=== PATIENT | male | born 1955 | race Caucasian/White ===

== ENCOUNTER 2022-02-22 14:26 | Outpatient (CLI) | payer MEDICARE, OTHER, SELFPAY ==
--- NOTE | ~2022-02-22 | CT_ITS ---
EXAMINATION: CT LE LT wo con DATE: 02/22/2022 14:02 INDICATION: Primary osteoarthritis of the left knee. Chronic left knee pain. TECHNIQUE: High resolution computed tomography (CT) of the left lower extremity from the hip through the ankle was performed without intravenous contrast. Additional sagittal and coronal reconstructions were performed. Automated exposure control and iterative reconstruction technique were employed. The dose-length product was 1936.69 mGy-cm. COMPARISON: Left knee radiographs dated 02/17/2022 FINDINGS: Bone alignment is normal. No fracture. Dense sclerotic bone islands with spiculated margins at the le ft femoral head and left superior pubic ramus. Curvilinear sclerosis underlying the posterior cortex at the proximal metaphyseal region of the tibia with no evident cortical erosion or other aggressive imaging features suggesting a benign etiology such as a hemangioma or scarring related to an old nono ssifying fibroma. Mild to moderate left hip osteoarthritis with mild subarticular cystlike changes at the superolateral left acetabulum and small marginal osteophytes along the acetabular rim. Tricompar tmental osteoarthritis at the left knee, severe in the medial compartment with some early remodeling of the articular cortex at the anterior half of the medial tibial plateau additional mild subarticula r cystlike changes along the anterior to central weightbearing medial femoral condyle. Moderate-sized marginal osteophytes at the patellofemoral compartment and small marginal osteophytes at the lateral compartment. Moderate osteoarthritis of the first metatarsophalangeal joint. Additional mild osteoar thritis at the left ankle and many of the remaining joints throughout the left foot. Small left knee joint effusion. There are some subcutaneous varicosities along both the medial and lateral aspect of the left thigh and calf. IMPRESSION: 1. Severe medial compartment predominant osteoarthritis at the left knee. Reviewed, dictated and finalized at location A. L MOLDER
[2022-02-22 15:04] LABS: Hematocrit 40.5 % (42.0-52.0); Hemoglobin 13.5 g/dL (14.0-18.0)
[2022-02-22 15:08] LABS: Albumin Level 4.4 g/dL (3.5-5.1); Estimated Glomerular Filt Rate 47; Glucose 98 mg/dL (65-110)
--- NOTE | 2022-02-22 15:18 | ECG_ITS ---
Measurements Intervals [place] Rate: 77 P: 3 DC: 168 QRS: -3 QRSD: 109 T: 12 QT: 385 QTc: 436 Interpretive Statements SINUS RHYTHM NORMAL ECG NO PREVIOUS ECG AVAILABLE FOR COMPARISON Electronically Signed On 02-22-2022 15:33:48 SHIPPING WEIGHER by Adonay Campos D.O.
== END 2022-02-22 14:27 | disposition home or self-care (01) ==
PROVIDERS: PCP Internal Medicine; Visit Provider Orthopaedic Surgery
DX: M17.12 Unilateral primary osteoarthritis, left knee (principal); D64.9 Anemia, unspecified; E66.9 Obesity, unspecified; E78.5 Hyperlipidemia, unspecified; I10 Essential (primary) hypertension
CPT/HCPCS: 36415; 73700; 82040; 82565; 82947; 85014; 85018; 93005

== ENCOUNTER 2022-03-31 11:54 | Outpatient (CLI) | payer MEDICARE, OTHER, SELFPAY ==
[2022-03-31 12:59] LABS: Basophils Percent Auto 0.8 % (0.2-1.2); Eosinophils Absolute Auto 0.1 K/mm3 (0-0.3); Eosinophils Percent Auto 1.5 % (0-4.4); Hematocrit 41.6 % (42.0-52.0); Hemoglobin 13.7 g/dL (14.0-18.0); Immature Granulocyte Absolute 0.01 K/mm3 (0.00-0.031); Immature Granulocyte Percent A 0.2 % (0-0.5); Lymphocytes Absolute Auto 1.09 K/mm3 (0.9-3.2); Lymphocytes Percent Auto 23.1 % (18.3-44.2); Mean Corpuscular HGB Conc 32.9 g/dl (32-36); Mean Corpuscular Hemoglobin 30.5 pg (26-34); Mean Corpuscular Volume 92.7 fl (80-100); Mean Platelet Volume 11.3 fl (7.4-10.4); Monocytes Absolute Auto 0.7 K/mm3 (0.1-0.6); Monocytes Percent Auto 14.8 % (2.6-8.5); Neutrophils Absolute Auto 2.8 K/mm3 (1.3-6.7); Neutrophils Percent Auto 59.6 % (45.5-73.1); Platelet Count Result 207 k/mm3 (150-375); Red Blood Count 4.49 M/mm3 (4.6-6.20); Red Cell Distribution Width 13.4 % (11.5-14.5); White Blood Count 4.7 K/mm3 (4.5-10.0)
[2022-03-31 13:09] LABS: Albumin Level 4.4 g/dL (3.5-5.1); Estimated Glomerular Filt Rate > 60; Glucose 99 mg/dL (65-110)
[2022-03-31 13:13] LABS: Urine Cotinine NEGATIVE
[2022-03-31 13:23] LABS: Hemoglobin A1C 5.3 % (<5.7)
== END 2022-03-31 11:55 | disposition home or self-care (01) ==
PROVIDERS: PCP Internal Medicine; Visit Provider Orthopaedic Surgery
DX: M17.12 Unilateral primary osteoarthritis, left knee (principal); Z01.818 Encounter for other preprocedural examination
CPT/HCPCS: 80307; 82040; 82565; 82947; 83036; 85025; 87081

== ENCOUNTER 2022-04-27 01:11 | Day surgery (SDC) | payer MEDICARE, OTHER, SELFPAY ==
[2022-03-31 12:04] VITALS: BMI 31.3
--- NOTE | 2022-03-31 12:25 | PC.NURSE ---
Report to the Outpatient Waiting Room, entrance under the green pavilion located off [facility], at time 1130 on date _04/27/22 . Planned Procedure Time: __1330 . Time changes happen often and if your time is changed the preop area will call you the afternoon before. - You and your visitor will be asked to self-screen and do not enter if you have any COVID symptoms. - Only one visitor is requested with a max of two and NO children visitors are allowed at this time. - The patient visitor may be requested to leave or wait in car when not with patient due to distancing restrictions. - A mask is optional within the hospital. Patients may have clear liquids (water, carbonated beverages, clear teas, apple juice) until 3 hours prior to surgery with a maximum of 20 ounces. - No food from midnight until time of surgery - Infants may have breast milk until 4 hours before surgery, infant formula 6 hours prior to surgery. - Children will be allowed to drink immediately following surgery. If applicable, please bring a bottle or sippy cup to assist with drinking. Juice, water, soda, and popsicles are readily available. For infants on formula, please bring formula the day of surgery. Pacifiers are allowed. TOTAL JOINT CLASS 04/07/22 AT 10 AM Take the following medications with a SIP of water the morning of surgery: ____NONE Medications to discontinue per physician MULTIVITAMIN HOLD 3 DAYS PRE OP-LAST DOSE WILL BE 04/23/22_.NO IBUPROFEN/ALEVE/ADVIL 7 DAYS PRE OP Please no make-up, nail divehi, hairspray, perfume, deodorant, or body powder the day of surgery. No jewelry (including any body piercings) or valuables the day of surgery, leave them at home. Please take a shower or bath the night before, or the morning of, surgery with an antibacterial soap. Wear comfortable, loose fitting clothing. Children are encouraged to wear pajamas. - Jewelry must be removed prior to entering the operating room. Rings and piercings that are not removed may be cut off. - The hospital will not accept responsibility for valuables. - Please leave all valuables, including medications, at home the day of surgery. If you are going home after surgery, a licensed hazardous materials driver must drive you home. - NO public transportation without another adult if you receive anesthesia. - We recommend that an adult stay with you for 24 hours following discharge. - We also recommend that you do not drive, make important decision, drink alcoholic beverages, or take any drugs that were not prescribed by your health care provider for at least 24 hours after your discharge time. For Pediatric surgeries, we recommend two adults accompany the child home. Follow any additional instructions given to you from your surgeon. If you or anyone in your household have experienced Covid symptoms in the past week, please notify your surgeon or the nurse liaison at the phone number below for possible testing. VERBAL AND WRITTEN instructions given to __PATIENT and asked if any additional questions and then verbalized understanding. Patient advised to call surgeon office or pre surgery nurse liaison [phone] if any additional questions.
[2022-03-31 12:42] VITALS: BP 130/80; PULSE 77; RESP 18; TEMP 36.8; O2SAT 98
--- NOTE | 2022-04-26 14:21 | WPDANESEPPF ---
Anes - Initial Pre Proc Eval Procedure: Operation Date: 04/27/22 08:30 Proposed Procedures p Left Custom Total Knee Arthroplasty - Jefferson Hollins MD Date/Time: 04/26/22 14:21 Surgeon: Jefferson Hollins MD Pre Op Diagnosis: primary oa left knee Patient Data Age: 66 Gender: M Height: 1.83 m Weight: 104.8 kg Last Vital Signs Temp 36.8 C 03/31/22 12:42 Pulse 77 03/31/22 12:42 Resp 18 03/31/22 12:42 BP 130/80 03/31/22 12:42 Pulse Ox 98 03/31/22 12:42 O2 Del Method Room Air 03/31/22 12:42 Allergies Allergy/AdvReac Type Severity Reaction Status Date / Time codeine Allergy Mild Nausea Verified 04/27/22 07:00 Home Medications Medication Instructions Recorded Confirmed Type lisinopril 20 mg tablet 20 mg PO DAILY #90 tabs 11/29/21 04/14/22 Rx acetaminophen 500 mg capsule 1,000 mg PO PRN PRN Pain 03/31/22 04/14/22 History fenofibrate 160 mg tablet 160 mg PO DAILY #120 tabs 04/23/22 Rx Patient hx anesthesia problems: none Family hx anesthesia problems: none Results Review: All pre-operative results and documents have been reviewed as part of the pre-operative evaluation. [facility]LY [facility] Past Medical History Medical History (Updated 04/26/22 @ 14:21 by Baron Briseno DO) COVID-19 Hyperlipidemia Hypertension Surgical History Surgical History History of colonoscopy Hx of transurethral resection of prostate Family History Family History Father Hypertension Sibling Patient's sister is in good health Patient's brother is in good health Family history of malignant neoplasm Patient's brother is Mother Family history of lung cancer, Onset Age: 70 Patient's mother is , Onset Age: 70 Social History Social History Smoking status: Unknown if ever smoked Second hand tobacco smoke exposure: No Additional smoking assessment comments: DENIES ANY FORM OF TOBACCO USE Alcohol intake: current Alcohol use details: very rarely Substance use: never Substance use type: does not use Lack of Transportation: No Lack of Food: Never True Current Housing: I Have Housing Concerned About Future Housing: No Difficulty Paying Gas/Electric Bills: No Difficulty Paying for Meds: No Currently Unemployed: No Education: Bachelor's Degree Difficulty w/ Childcare or Family Care: No Living arrangements: with family Spiritual care concerns: No Anes - Eval Final PreProcedure Day of Procedure 04/26/22 14:21 Patient weight: obese Heart: regular rate and rhythm Lungs: clear to auscultation Airway: Mallampati scale class II Neurological: alert and oriented Last oral intake: >/= 8 hours ASA classification: III Emergent: no Anesthetic plan: proceed Anesthesia type and monitoring: general LMA and standard monitoring Results Review: All pre-operative results and documents have been reviewed as part of the pre-operative evaluation. Informed Consent: The patient's anesthetic plan and its attendant risks and benefits were discussed with the patient/family/POA. Questions were solicited and answers provided to the satisfaction of the patient/family/POA.
[2022-04-27] VITALS (14 sets, daily range): BP systolic 125–144; BP diastolic 61–82; PULSE 68–88; RESP 12–18; TEMP 36.1–36.6; O2SAT 97–100
--- NOTE | ~2022-04-27 | XR_ITS ---
EXAMINATION: XR knee LT 2V DATE: 04/27/2022 11:31 INDICATION: Postoperative evaluation following left knee arthroplasty. TECHNIQUE: Anteroposterior and lateral views of the left knee were obtained. COMPARISON: 02/17/22 FINDINGS: Left total knee arthroplasty with patellar resurfacing appears well seated and in near anatomic align ment. No fractures identified. Expected postoperative subcutaneous, intramedullary and intra-articul ar gas. IMPRESSION: 1. Left total knee arthroplasty, negative for postoperative purposes. Reviewed, dictated and finalized at location A. HEN CLEANER
[2022-04-27] MEDS: ACETAMINOPHEN 500 MG TABLET 1000 MG PO (07:11)
[2022-04-27] MEDS: LACTATED RINGERS 1,000 ML 30 ML IV CONT ×2 (07:24→11:15)
[2022-04-27] MEDS: TRANEXAMIC ACID 1,000MG/ISO100 1,000 MG/100 ML BAG 200 MG IVPB (07:53)
--- NOTE | 2022-04-27 07:59 | WPDHPUPDATE1 ---
History and Physical Update Update Date/Time: 04/27/22 07:59 History and Physical has been reviewed, including an updated exam of the patient. There are NO changes in the patient's condition. Risks, benefits, and alternatives have been discussed and questions answered. Patient agrees to proceed with procedure.
--- NOTE | 2022-04-27 08:16 | WPDANESPNB ---
Anes - Peripheral Nerve Block Date/Time: 04/27/22 08:16 I have discussed with the patient/family/POA the placement of a peripheral nerve block for post-operative pain management, including associated risks, benefits, complications, and side effects. Alternative methods of post-operative analgesia were detailed. Questions were solicited and answers provided to the satisfaction of the patient/family/POA. Time-Out: A pre-procedural Time-Out was completed immediately before starting the procedure and confirmed: Patient Identification, Site, Procedure, Patient Position and the Availability of Requisite Equipment. Clinical Indications: Acute post-operative pain management requested by the operative surgeon. Nerve Block Insertion Note Anes-nerve block: adductor canal left Patient position: supine Skin prep: chlorhexidine Needle: 22 gauge, stimulating, insulated echogenic needle. Needle length: 80 mm Technique: ultrasound Injectate: bupivacaine 0.5% with epi 5 mcg/ml (30cc - no epi) Observations: tolerated well Complications: none Procedure start time:: 804 Procedure end time:: 807
[2022-04-27] MEDS: ceFAZolin 2 GM/D5W 50 ML 2 GM/50 ML BAG IVPB (09:10)
[2022-04-27] MEDS: GENTAMICIN BONE CEMENT REFOBACIN 1 EACH TOPICAL (09:12)
[2022-04-27] MEDS: TRANEXAMIC ACID 1,000 MG/10 ML AMPUL 1000 MG IV PUSH (10:47)
[2022-04-27] MEDS: fentaNYL CITRATE INJ (*CRX) 100 MCG/2 ML VIAL 25 MCG IV PUSH ×8 (11:27→12:21)
--- NOTE | 2022-04-27 11:32 | P.OP_ITS ---
Procedure Note - Detailed Date of Procedure 04/27/22 Pre-op Diagnosis primary oa left knee Post-op Diagnosis Same Procedure Performed Total knee arthroplasty, left. Surgeon Jefferson Hollins MD Nuclear Engineering Technician Susan Cochran PA-C Anesthesia General and Regional (Subsartorial block.) Findings Varus deformity. Good bone quality. Implants fit very well. Very slight medial release. Posterior stabilized Imprint implant. Description of Procedure Preoperative antibiotics were given. The limb was prepped and draped in the usual sterile fashion with a well-padded tourniquet high on the thigh. The limb was exsanguinated and the tourniquet inflated to 300 mmHg during exposure and cementation. A longitudinal incision was created just medial to the patella. A trivector approach to the knee was performed. Arthrotomy was taken down through the joint capsule. No significant releases were initially taken. The femur was exposed and the F1 jig was applied. The coring tool was used to remove the cartilage for the F2 jig to sit flush with the bone. The jig was pinned and the distal cut carefully taken. Caliper measurements confirmed appropriate bony resections according to the preoperative templated plan. The F4 cutting jig for the femur was applied, at the standard rotation. The AP and anterior chamfer cuts were taken. The F5 jig was applied and the posterior chamfer cuts were taken. Box cut was taken. PCL resected. The tibia was prepared using the T1 jig, after removing cartilage for the jig contact points. Proper alignment was checked with the alignment tyrell. The tibia was cut using the T1u guide. Gap balancing was performed. Gap measurements were taken and the knee was trialed. Excellent alignment and soft tissue balancing was confirmed. The patella was cut for resurfacing. Three lug holes were drille d. Meniscal remnants were removed. The trial components were assembled. Excellent range of motion and proper soft tissue balancing were confirmed throughout the full range of motion. Patellar tracking was excellent. The knee was copiously irrigated periodically throughout the procedure. The real implants were cemented into position. Excess cement was carefully removed. The wound was closed in layers with interrupted #1 Vicryl suture, 2-0 strata fix suture, 0 strata fix suture, 2-0 strata fix suture. Steri-Strips placed on the skin with the knee flexed. Sterile bulky dressing applied. The patient was brought to the recovery room in stable condition. There were no complications. Physician nutrition services assistant, Susan Cochran PA-C, required for surgery; including patient positioning, draping, tissue retraction, maintaining instrument position, wound closure, and dressing placement. Implants Conformis Imprint semi-custom total knee arthroplasty. Cemented. Posterior stabilized 8mm insert. 41 mm round patella. Estimated Blood Loss -200.0 Drains No Complications No immediate complications Condition Stable Disposition PACU [facility] Billing Surgery - Charge Forward: Surgery Billing
[2022-04-27] MEDS: oxyCODONE HCL (*CRX) 5 MG TAB IR PO (12:35)
[2022-04-27] MEDS: KETOROLAC 30 MG/ML VIAL (*BKC) IV PUSH (13:16)
--- NOTE | 2022-04-27 13:25 | PCPTNOTE ---
Attempted PT evaluation, pt is in recovery/too much pain to be seen by PT per RN. Will follow
--- NOTE | 2022-04-27 16:10 | SUR.PHASEII ---
1530 pt has been seen by pt/ot and is good to be discharged. pt is wanting to also be discharged and meets anesthesia protocol to be discharged
== END 2022-04-27 16:00 | disposition home or self-care (01) ==
PROVIDERS: PCP Internal Medicine; Visit Provider Orthopaedic Surgery
PROC: (CPT 27447; principal; 2022-04-27 08:30)
DX: M17.12 Unilateral primary osteoarthritis, left knee (principal); G89.18 Other acute postprocedural pain; I10 Essential (primary) hypertension; E78.5 Hyperlipidemia, unspecified; E66.9 Obesity, unspecified; Z68.30 Body mass index [BMI] 30.0-30.9, adult
CPT/HCPCS: 27447; 64447; 36415; 73560; 86850; 86900; 86901; 97110; 97161; 97165; 97535; A9270; C1713; C1776; J0131; J0171; J0690; J1100; J1170; J1885; J2250; J2270; J2405; J2704; J2795; J3010; J7120

== ENCOUNTER 2023-04-26 09:11 | Outpatient (CLI) | payer MEDICARE, OTHER, SELFPAY ==
--- NOTE | ~2023-04-26 | XR_ITS ---
Left Knee Technique: AP, lateral, and sunrise views were obtained. Clinical History: Arthroplasty follow-up Findings: No fracture or dislocation is seen. Total left knee arthroplasty in place, without evidence of hardware complication.. Soft tissues are unremarkable. No joint effusion is seen. Impression: No acute abnormality. Left knee arthroplasty in place. Reviewed, dictated and finalized at location . MS ADJUSTER Impression: No acute abnormality. Left knee arthroplasty in place.
== END 2023-04-26 09:12 | disposition home or self-care (01) ==
PROVIDERS: PCP Internal Medicine; Visit Provider Orthopaedic Surgery
DX: Z47.1 Aftercare following joint replacement surgery (principal); Z96.652 Presence of left artificial knee joint
CPT/HCPCS: 73562

== ENCOUNTER 2023-11-22 16:43 | Emergency (ER) | payer MEDICARE, OTHER, SELFPAY ==
--- NOTE | 2023-11-22 16:47 | ED.EAR ---
HPI - Ear Problem General Chief complaint: Ear Stated complaint: ears clogged Time Seen by Provider: 11/22/23 16:46 Source: patient Mode of arrival: ambulatory Limitations: no limitations History of Present Illness HPI Narrative: Mario is a 68-year-old male patient presenting to the clinic today with complaints of feeling as though his right ear clogged afrer going swimming. He reports he can not hear out of the right ear. Denies any pain or other concerns. Related Data Allergies Allergy/AdvReac Type Severity Reaction Status Date / Time codeine Allergy Mild Nausea Verified 11/22/23 17:22 Review of Systems Review of Systems: Pertinent positives per HPI. Patient denies any fever, chills, rash, headache, visual changes, dizziness, cough, runny nose, sore throat, shortness of breath, chest pain, palpitations, nausea, vomiting, diarrhea, constipation, abdominal pain, or any urinary issues. PMFSH Past Medical History Medical History COVID-19 Hyperlipidemia Hypertension Surgical History Surgical History History of colonoscopy Hx of transurethral resection of prostate Status post total left knee replacement (~04/27/22) Family History Family History Father Hypertension Sibling Patient's sister is in good health Patient's brother is in good health Family history of malignant neoplasm Patient's brother is Mother Family history of lung cancer, Onset Age: 70 Patient's mother is , Onset Age: 70 Social History Social History Smoking status: Never smoker Second hand tobacco smoke exposure: No Additional smoking assessment comments: DENIES ANY FORM OF TOBACCO USE Alcohol intake: current Alcohol use details: very rarely Substance use: never Substance use type: does not use Do You Feel Safe in your Home?: Yes Lack of Transportation: No Lack of Food: Never True Current Housing: I Have Housing Concerned About Future Housing: No Difficulty Paying Gas/Electric Bills: No Difficulty Paying for Meds: No Currently Unemployed: No Education: Bachelor's Degree Difficulty w/ Childcare or Family Care: No Living arrangements: with family Spiritual care concerns: No Comments At the time of my signature, I reviewed and agree with the nursing past medical, surgical, social, and family history. There is no relevant family history pertinent to the patient complaint. Exam Narrative: General: Well-developed, well nourished, in no apparent distress Head: Normocephalic, atraumatic Eyes: Pupils equally round and reactive to light bilaterally, EOM intact, sclera and conjunctive clear, no discharge, lids normal Ears: Right ear canal impacted with cerumen, ear lavaged an ear curette was used to remove cerumen, TMs intact and clear, ear canals clear, no drainage, grossly hearing normal. Nose: Nares patent, no discharge, no inflammation, no sinus tenderness. Mouth: Oropharynx without lesions or masses, good dentition, MMM. Neck: Supple, trachea midline, no enlargement of anterior or posterior cervical nodes, no thyroid masses or goiter palpable. Cardio: Regular rate and rhythm, s1 and s2 normal, no murmur appreciated. Resp: Clear to auscultation bilaterally anteriorly and posteriorly, no rhonchi, rales, wheezing or rubs Course Course Emergency Course: Portions of this record may have been created with voice recognition software. Level of Care: Express Care Visit Vital Signs Vital signs: Vital signs reviewed Procedures Ear Wax Removal Right Ear: Ear Wax Removal Date: 11/22/23 Results: Re-examined: cerumen removed completely TM Examination: TM(s) intact, normal appearance Ear Canal E
[2023-11-22 17:14] VITALS: BP 135/70; PULSE 69; RESP 16; TEMP 36.9; O2SAT 99
== END 2023-11-22 17:26 | disposition home or self-care (01) ==
PROVIDERS: Emergency Provider Nurse Practitioner Family; PCP Internal Medicine
DX: H61.21 Impacted cerumen, right ear (principal); I10 Essential (primary) hypertension; E78.5 Hyperlipidemia, unspecified; Z86.16 Personal history of COVID-19; Z96.652 Presence of left artificial knee joint
CPT/HCPCS: 69210; 99212; G0463

== ENCOUNTER 2024-05-07 13:30 | Emergency (ER) | payer MEDICARE, OTHER, SELFPAY ==
[2024-05-07 13:37] VITALS: BP 146/80; PULSE 75; RESP 18; TEMP 36.6; O2SAT 100
--- NOTE | 2024-05-07 13:42 | ED.EAR ---
HPI - Ear Problem General Chief complaint: Ear Stated complaint: Ear Pain Time Seen by Provider: 05/07/24 13:42 Source: patient Mode of arrival: ambulatory Limitations: no limitations History of Present Illness HPI Narrative: 68-year-old male presents with complaint left ear pain since yesterday. Afebrile. All systems reviewed and negative except as noted above. Related Data Allergies Allergy/AdvReac Type Severity Reaction Status Date / Time codeine Allergy Mild Nausea Verified 05/07/24 13:40 Review of Systems Review of Systems: CONSTITUTIONAL: Denies fever, chills, or sweats. EYES: Denies visual changes, redness, or discharge. ENT: Denies rhinorrhea, congestion, sore throat. Reports left ear pain. CARDIOVASCULAR: Denies chest pain, palpitations, or edema. RESPIRATORY: Denies cough or dyspnea. GASTROINTESTINAL: Denies abdominal pain, nausea, vomiting, or diarrhea. GENITOURINARY: Denies dysuria or hematuria. SKIN: Denies rash or itching. MUSCULOSKELETAL: Denies back pain, joint pain, or myalgia. NEUROLOGIC: Denies headache, numbness, or weakness. PSYCHIATRIC: Denies anxiety or depression. All other systems reviewed are negative, except as documented in HPI. [facility] Past Medical History Medical History Hypertension COVID-19 Hyperlipidemia Surgical History Surgical History Status post total left knee replacement (~04/27/22) Hx of transurethral resection of prostate History of colonoscopy Family History Family History Father Hypertension Sibling Patient's sister is in good health Patient's brother is in good health Family history of malignant neoplasm Patient's brother is Mother Family history of lung cancer, Onset Age: 70 Patient's mother is , Onset Age: 70 Social History Social History Smoking status: Never smoker Second hand tobacco smoke exposure: No Additional smoking assessment comments: DENIES ANY FORM OF TOBACCO USE Alcohol intake: current Alcohol use details: very rarely Substance use: never Substance use type: does not use Do You Feel Safe in your Home?: Yes Lack of Transportation: No Lack of Food: Never True Current Housing: I Have Housing Concerned About Future Housing: No Difficulty Paying Gas/Electric Bills: No Difficulty Paying for Meds: No Currently Unemployed: No Education: Bachelor's Degree Difficulty w/ Childcare or Family Care: No Living arrangements: with family Spiritual care concerns: No Comments At time of signature, agree with nursing past medical, surgical, social and family history. There is no relevant family history pertinent to the presenting complaint. Exam Narrative: GENERAL: This is a well-nourished, well-developed patient, in no apparent distress. HEAD: normocephalic, atraumatic. EYES: PERRL. Sclera clear/white. Vision is grossly intact. EARS: External ears normal, right ear canal normal. Left ear canal is slightly erythematous and swollen with yellow drainage. Left TM is erythematous and retracted. Right TM is normal. Hearing grossly intact bilaterally. NOSE: External nose normal with no obvious nasal discharge, nares without redness, no rhinorrhea. THROAT: Mucous membranes moist, posterior pharynx clear. NECK: Neck supple, non-tender without lymphadenopathy, masses or thyromegaly. CARDIOVASCULAR: Regular rate and rhythm without murmurs, gallops, or rubs. RESPIRATORY: Clear to auscultation. Breath sounds equal bilaterally. No wheezes, rales, or rhonchi. SKIN: warm, Dry, intact with no suspicious lesions or rash, good texture and turgor. NEURO: awake, alert, and oriented to person, place and time. There were no obvious focal neurologic abnormalities. EXTREMITIES: No joint tenderness, effusion, or edema noted. Course Course Level of Care: Express Care Visit Vital Signs Vital signs: Vital Signs Temperature 36.6 C 05/07/24 13:37 Pulse Rate 75 05/07/24 13:37 Respiratory Rate 18 05/07/24 13:37 Blood Pressure 146/80 H 05/07/24 13:37 Pulse Oximetry 100 05/07/24 13:37 Oxygen Delivery Room Air 05/07/24 13:37 Temperature 36.6 C 05/07/24 13:37 Pulse Rate 75 05/07/24 13:37 Respiratory Rate 18 05/07/24 13:37 Blood Pressure 146/80 H 05/07/24 13:37 Pulse Oximetry 100 05/07/24 13:37 Oxygen Delivery Room Air 05/07/24 13:37 Reviewed Medical Decision Making MDM Narrative Medical decision making narrative: Patient is well-appearing, nontoxic. Due to patient's symptoms and exam findings findings I will treat him with an antibiotic ear drop and oral antibiotic for otitis media and otitis externa. Patient agrees with plan of care. Patient is aware of diagnosis, understands and agrees to treatment plan. Anticipatory guidance given. Patient agrees to follow-up as directed and is aware of reasons to seek care at the emergency department. Portions of this record may have been created with voice recognition software Vital Signs Vital Signs: Vital Signs Temperature 36.6 C 05/07/24 13:37 Pulse Rate 75 05/07/24 13:37 Respiratory Rate 18 05/07/24 13:37 Blood Pressure 146/80 H 05/07/24 13:37 Pulse Oximetry 100 05/07/24 13:37 Oxygen Delivery Room Air 05/07/24 13:37 Temperature 36.6 C 05/07/24 13:37 Pulse Rate 75 05/07/24 13:37 Respiratory Rate 18 05/07/24 13:37 Blood Pressure 146/80 H 05/07/24 13:37 Pulse Oximetry 100 05/07/24 13:37 Oxygen Delivery Room Air 05/07/24 13:37 Discharge Plan Discharge Clinical Impression: Acute left otitis media, Acute otitis externa of left ear Patient Disposition: Home, Self-Care Condition: Stable Instructions: Antibiotic Form, How to Use Ear Drops (ED), Ear Infection (ED) Additional Instructions: Take antibiotic as prescribed until gone. Take Tylenol every 6-8 hours as needed for pain. Follow-up with your primary care physician if symptoms are not improving. Patient Language: Montserratian Prescriptions: New amoxicillin 875 mg tablet 875 mg PO Q12H 10 Days Qty: 20 0RF ofloxacin 0.3 % drops 10 drp LEFT EAR DAILY 7 Days Qty: 5 0RF No Action fenofibrate 160 mg tablet 160 mg PO DAILY Qty: 90 3RF lisinopril 20 mg tablet 20 mg PO DAILY Qty: 90 2RF Follow-up/Referrals: Ray Rand DO [Primary Care Provider] - Time of Disposition: 13:48
== END 2024-05-07 13:48 | disposition home or self-care (01) ==
PROVIDERS: Emergency Provider Nurse Practitioner Family; PCP Internal Medicine
DX: H66.92 Otitis media, unspecified, left ear (principal); H60.92 Unspecified otitis externa, left ear; I10 Essential (primary) hypertension; E78.5 Hyperlipidemia, unspecified; Z86.16 Personal history of COVID-19; Z96.652 Presence of left artificial knee joint
CPT/HCPCS: 99213; G0463

== ENCOUNTER 2024-06-27 00:38 | Day surgery (SDC) | payer MEDICARE, OTHER, SELFPAY ==
[2024-06-19 13:08] VITALS: BMI 33.9
[2024-06-27 07:58] VITALS: BP 134/69; PULSE 74; RESP 18; TEMP 36.1; O2SAT 98; BMI 34.2
[2024-06-27] MEDS: LACTATED RINGERS 1,000 ML 150 ML IV CONT (08:06)
--- NOTE | 2024-06-27 08:17 | WPDANESEPPF ---
Anes - Initial Pre Proc Eval Procedure: Operation Date: 06/27/24 09:30 Proposed Procedures p Screening Colonoscopy - Noel Pardo MD Date/Time: 06/27/24 08:17 Surgeon: Noel Pardo MD Pre Op Diagnosis: Screening Patient Data Age: 68 Gender: M Height: 1.83 m Weight: 114.4 kg Last Vital Signs Temp 36.1 C L 06/27/24 07:58 Pulse 74 06/27/24 07:58 Resp 18 06/27/24 07:58 BP 134/69 06/27/24 07:58 Pulse Ox 98 06/27/24 07:58 O2 Del Method Room Air 06/27/24 07:58 Allergies Allergy/AdvReac Type Severity Reaction Status Date / Time codeine Allergy Mild Nausea Verified 06/27/24 07:57 Home Medications ?Medication ?Instructions ?Recorded ?Confirmed ?Type lisinopril 20 mg tablet 20 mg PO DAILY #90 tabs 01/09/24 06/27/24 Rx fenofibrate 160 mg tablet 160 mg PO DAILY #90 tabs 05/31/24 06/27/24 Rx multivitamin (Daily Multi-Vitamin 1 tablet PO DAILY 06/19/24 06/27/24 History tablet) Patient hx anesthesia problems: none Family hx anesthesia problems: none Results Review: All pre-operative results and documents have been reviewed as part of the pre-operative evaluation. [facility] Past Medical History Medical History Hypertension COVID-19 Hyperlipidemia Surgical History Surgical History Status post total left knee replacement (~04/27/22) Hx of transurethral resection of prostate History of colonoscopy Family History Family History Father Hypertension Sibling Patient's sister is in good health Patient's brother is in good health Family history of malignant neoplasm Patient's brother is Mother Family history of lung cancer, Onset Age: 70 Patient's mother is , Onset Age: 70 Social History Social History Smoking status: Never smoker Second hand tobacco smoke exposure: No Additional smoking assessment comments: DENIES ANY FORM OF TOBACCO USE Alcohol intake: current Alcohol use details: very rarely Substance use: never Substance use type: does not use Do You Feel Safe in your Home?: Yes Lack of Transportation: No Lack of Food: Never True Current Housing: I Have Housing Concerned About Future Housing: No Difficulty Paying Gas/Electric Bills: No Difficulty Paying for Meds: No Currently Unemployed: No Education: Bachelor's Degree Difficulty w/ Childcare or Family Care: No Living arrangements: with family Spiritual care concerns: No Anes - Eval Final PreProcedure Day of Procedure 06/27/24 08:17 Patient weight: obese Heart: regular rate and rhythm Lungs: clear to auscultation Airway: Mallampati scale class II Neurological: alert and oriented Last oral intake: >/= 8 hours ASA classification: II Emergent: no Anesthetic plan: proceed Anesthesia type and monitoring: general GIVS and standard monitoring Results Review: All pre-operative results and documents have been reviewed as part of the pre-operative evaluation. Informed Consent: The patient's anesthetic plan and its attendant risks and benefits were discussed with the patient/family/POA. Questions were solicited and answers provided to the satisfaction of the patient/family/POA.
--- NOTE | 2024-06-27 09:01 | PM.HPGS ---
History of Present Illness History of Present Illness Consent: Risks, benefits, and alternatives have been discussed and questions answered. Patient agrees to proceed with procedure. Chief complaint: Screening Narrative: Mario Casillas is a 68 year old male here for screening colonoscopy, last one in 2013 Review of Systems Review of Systems: All systems reviewed & are unremarkable except as noted in HPI and below PMFSH Past Medical History Medical History (Updated 06/27/24 @ 09:01 by Noel Pardo MD) Colon cancer screening Hypertension COVID-19 Hyperlipidemia Surgical History Surgical History Status post total left knee replacement (~04/27/22) Hx of transurethral resection of prostate History of colonoscopy Family History Family History Father Hypertension Sibling Patient's sister is in good health Patient's brother is in good health Family history of malignant neoplasm Patient's brother is Mother Family history of lung cancer, Onset Age: 70 Patient's mother is , Onset Age: 70 Social History Social History Smoking status: Never smoker Second hand tobacco smoke exposure: No Additional smoking assessment comments: DENIES ANY FORM OF TOBACCO USE Alcohol intake: current Alcohol use details: very rarely Substance use: never Substance use type: does not use Do You Feel Safe in your Home?: Yes Lack of Transportation: No Lack of Food: Never True Current Housing: I Have Housing Concerned About Future Housing: No Difficulty Paying Gas/Electric Bills: No Difficulty Paying for Meds: No Currently Unemployed: No Education: Bachelor's Degree Difficulty w/ Childcare or Family Care: No Living arrangements: with family Spiritual care concerns: No Meds Home Medications and Allergies Home Medications ?Medication ?Instructions ?Recorded ?Confirmed ?Type lisinopril 20 mg tablet 20 mg PO DAILY #90 tabs 01/09/24 06/27/24 Rx fenofibrate 160 mg tablet 160 mg PO DAILY #90 tabs 05/31/24 06/27/24 Rx multivitamin (Daily Multi-Vitamin 1 tablet PO DAILY 06/19/24 06/27/24 History tablet) Allergies Allergy/AdvReac Type Severity Reaction Status Date / Time codeine Allergy Mild Nausea Verified 06/27/24 07:57 Vital Signs Vital Signs - 24 hr 06/27/24 07:58 Temperature 97 F L Pulse Rate 74 Respiratory Rate 18 Blood Pressure 134/69 Pulse Oximetry 98 Oxygen Delivery Room Air Exam Const: General: comfortable and no acute distress HENMT: Face/Nose/Sinus: Normal nares present Eyes: General: appearance normal, both eyes and all related structures Neck: Neck: no JVD Resp: Auscultation: clear to auscultation bilaterally Cardio: Rate: regular rate Rhythm: regular rhythm GI: Inspection: non-distended GI Palp: Yes Soft to palpation Skin: General skin exam: normal color Neuro: General: gait normal Speech: normal speech Extrem: General: normal to inspection Psych: Mental Status: mental status grossly normal Assessment and Plan Assessment and plan (1) Colon cancer screening: Code(s): Z12.11 - Encounter for screening for malignant neoplasm of colon Status: Acute Assessment and Plan: colonoscopy
[2024-06-27 09:23] VITALS: BP 120/69; PULSE 76; RESP 19; O2SAT 98
[2024-06-27 09:33] VITALS: BP 115/75; PULSE 65; RESP 16; O2SAT 95
[2024-06-27 09:43] VITALS: BP 125/81; PULSE 61; RESP 16; O2SAT 98
== END 2024-06-27 09:51 | disposition home or self-care (01) ==
PROVIDERS: PCP Internal Medicine; Referring Provider Internal Medicine; Visit Provider Internal Medicine Gastroenterology
PROC: 0DJD8ZZ Inspection of Lower Intestinal Tract, Via Natural or Artificial Opening Endoscopic (ICD-10-PCS; CPT 45378; principal; 2024-06-27 09:30)
DX: Z12.11 Encounter for screening for malignant neoplasm of colon (principal); D12.3 Benign neoplasm of transverse colon; K64.8 Other hemorrhoids; I10 Essential (primary) hypertension; E78.5 Hyperlipidemia, unspecified; E66.9 Obesity, unspecified; Z68.34 Body mass index [BMI] 34.0-34.9, adult; Z98.890 Other specified postprocedural states; Z80.1 Family history of malignant neoplasm of trachea, bronchus and lung
CPT/HCPCS: 45385; 88305; J2003; J2704; J7120